=== PATIENT | female | born 1985 | race Caucasian/White ===

== ENCOUNTER 2019-12-10 09:05 | Emergency (ER) | payer MEDICAID ==
[~2019-12-10] VITALS: Ht 167.6 cm; Wt 67.0 kg
[2019-12-10] MEDS ORDERED: MORPHINE SULFATE 4 MG/ML CPJ (NOT FOR IM USE) IV STA (09:42)
[2019-12-10] MEDS ORDERED: ONDANSETRON HCL 4MG/2ML INJ IV STA (09:42)
[2019-12-10 09:53] LABS: BASOPHILS % 0.5 % (0.0-2.0); EOSINOPHILS % 1.2 % (0.0-5.0); HEMATOCRIT. 37.9 % (36.0-48.0); HEMOGLOBIN. 12.5 g/dL (12.0-16.0); LYMPHOCYTES % 13.3 % (20.0-50.0); MEAN CORPUSCULAR HEMOGLOBIN 24.5 pg (28.0-32.0); MEAN CORPUSCULAR VOLUME 74.6 fL (81.0-99.0); MEAN PLATELET VOLUME 7.2 fl (7.4-10.4); MONOCYTES % 3.5 % (2.0-8.0); NEUTROPHILS % 81.5 % (40.0-76.0); PLATELET 322 x1000/uL (130-400); RED BLOOD CELL COUNT 5.09 mill/uL (4.2-5.4); RED CELL DISTRIBUTION WIDTH 16.1 % (11.6-14.6)
[2019-12-10 10:02] LABS: CHLORIDE 113 mEq/L (98-107)
[2019-12-10 10:03] LABS: INR 0.9
[2019-12-10 10:14] LABS: CLARITY URINE CLOUDY (CLEAR); COLOR URINE YELLOW (YELLOW); KETONES URINE NEGATIVE (NEGATIVE); LEUKOCYTE ESTERASE URINE NEGATIVE (NEGATIVE); NITRITE URINE NEGATIVE (NEGATIVE); OCCULT BLOOD URINE NEGATIVE (NEGATIVE); PH URINE >=9.0 (4.5-8.0); PROTEIN URINE NEGATIVE (NEGATIVE); SPECIFIC GRAVITY URINE 1.021 (1.005-1.030)
[2019-12-10 11:20] VITALS: BP 161/70
== END 2019-12-10 11:37 | disposition home or self-care (01) ==
LOC: ER 09:22
DX: K80.20 Calculus of gallbladder without cholecystitis without obstruction (principal); R10.9 Unspecified abdominal pain
CPT/HCPCS: 36415; 76705; 80053; 81003; 81025; 83690; 85025; 85610; 93005; 96374; 96375; 99285; J2270; J2405

== ENCOUNTER 2020-05-20 05:06 | Inpatient (IN) | payer MEDICAID ==
[~2020-05-20] VITALS: Ht 317.5 cm; Wt 104.8 kg
[2020-05-20] MEDS ORDERED: MORPHINE SULFATE 4 MG/ML CPJ (NOT FOR IM USE) IV STA (06:16)
[2020-05-20] MEDS ORDERED: ONDANSETRON HCL 4MG/2ML INJ IV STA (06:16)
[2020-05-20 06:45] LABS: BASOPHILS % 0.3 % (0.0-2.0); EOSINOPHILS % 2.4 % (0.0-5.0); HEMATOCRIT. 36.1 % (36.0-48.0); HEMOGLOBIN. 11.9 g/dL (12.0-16.0); LYMPHOCYTES % 16.2 % (20.0-50.0); MEAN CORPUSCULAR HEMOGLOBIN 25.3 pg (28.0-32.0); MEAN CORPUSCULAR VOLUME 76.4 fL (81.0-99.0); MEAN PLATELET VOLUME 7.5 fl (7.4-10.4); MONOCYTES % 4.7 % (2.0-8.0); NEUTROPHILS % 76.4 % (40.0-76.0); PLATELET 256 x1000/uL (130-400); RED BLOOD CELL COUNT 4.72 mill/uL (4.2-5.4); RED CELL DISTRIBUTION WIDTH 15.6 % (11.6-14.6)
[2020-05-20 06:50] LABS: CHLORIDE 106 mEq/L (98-107)
[2020-05-20 07:04] LABS: PROTHROMBIN TIME 10.3 sec (9.6-11.0)
[2020-05-20 07:09] LABS: HCG SCREEN POSITIVE
[2020-05-20 07:16] LABS: CLARITY URINE TURBID (CLEAR); COLOR URINE YELLOW (YELLOW); KETONES URINE NEGATIVE (NEGATIVE); LEUKOCYTE ESTERASE URINE NEGATIVE (NEGATIVE); NITRITE URINE NEGATIVE (NEGATIVE); OCCULT BLOOD URINE NEGATIVE (NEGATIVE); PROTEIN URINE NEGATIVE (NEGATIVE); SPECIFIC GRAVITY URINE 1.017 (1.005-1.030)
[2020-05-20 07:17] LABS: UCG SCREEN POSITIVE
[2020-05-20] MEDS ORDERED: CEFTRIAXONE 1 G PREMIX 50 ML IV ONE (08:15)
[2020-05-20 12:00] VITALS: BP 143/67
[2020-05-20] MEDS ORDERED: MORPHINE SULFATE 2 MG/ML CPJ (NOT FOR IM USE) IV PRN (14:00)
[2020-05-20] MEDS ORDERED: ONDANSETRON HCL 4MG/2ML INJ IV PRN (14:00)
[2020-05-20] MEDS ORDERED: ACETAMINOPHEN 325MG TABLET PO PRN ×2 (14:00)
[2020-05-20] MEDS: DEXT 5%/0.45% NACL 1000ML 1,000 ML IV SCH (14:52)
[2020-05-20 16:00] VITALS: BP 143/49
[2020-05-20] MEDS: PIPERACILLIN/TAZOBACTAM 3.375 G in DEXT 5% WATER 100 ML IV SCH ×2 (17:49→23:52)
[2020-05-20 20:00] VITALS: BP 107/49
[2020-05-21] VITALS: BP 103/64
[2020-05-21] MEDS: DEXT 5%/0.45% NACL 1000ML 1,000 ML IV SCH ×2 (00:07→09:37)
[2020-05-21 04:00] VITALS: BP 137/62
[2020-05-21] MEDS: PIPERACILLIN/TAZOBACTAM 3.375 G in DEXT 5% WATER 100 ML IV SCH ×3 (05:41→18:33)
[2020-05-21 08:00] VITALS: BP 132/66
[2020-05-21 08:18] LABS: BASOPHILS % 0.6 % (0.0-2.0); EOSINOPHILS % 4.4 % (0.0-5.0); HEMATOCRIT. 36.2 % (36.0-48.0); HEMOGLOBIN. 11.5 g/dL (12.0-16.0); LYMPHOCYTES % 22.7 % (20.0-50.0); MEAN CORPUSCULAR HEMOGLOBIN 24.6 pg (28.0-32.0); MEAN CORPUSCULAR VOLUME 77.3 fL (81.0-99.0); MEAN PLATELET VOLUME 7.7 fl (7.4-10.4); MONOCYTES % 4.6 % (2.0-8.0); NEUTROPHILS % 67.7 % (40.0-76.0); PLATELET 263 x1000/uL (130-400); RED BLOOD CELL COUNT 4.68 mill/uL (4.2-5.4); RED CELL DISTRIBUTION WIDTH 15.5 % (11.6-14.6)
[2020-05-21 08:42] LABS: CHLORIDE 105 mEq/L (98-107)
[2020-05-21 08:52] LABS: PHOSPHORUS 3.3 mg/dL (2.5-4.9)
[2020-05-21] MEDS ORDERED: CEFTRIAXONE 1 G PREMIX 50 ML IV SCH (09:00)
[2020-05-21] MEDS ORDERED: PANTOPRAZOLE SODIUM 40 MG/VIAL IV SCH (09:00)
[2020-05-21 12:00] VITALS: BP 127/66
[2020-05-21 16:00] VITALS: BP 121/64
[2020-05-21 20:00] VITALS: BP 118/52
[2020-05-22] VITALS: BP 125/56
[2020-05-22] MEDS: PIPERACILLIN/TAZOBACTAM 3.375 G in DEXT 5% WATER 100 ML IV SCH ×2 (00:42→04:55)
[2020-05-22 04:00] VITALS: BP 110/55
[2020-05-22] MEDS: DEXT 5%/0.45% NACL 1000ML 1,000 ML IV SCH (05:00)
[2020-05-22 08:00] VITALS: BP 118/56
[2020-05-22 08:37] VITALS: BP 123/65
== END 2020-05-22 09:15 | disposition home or self-care (01) | DRG 566 ==
LOC: ER 05:06 → 8WST 10:50 → EDBEDREQ 10:52 → ENRESERV 11:43
PROVIDERS: ADMIT Internal Medicine; ATTEND Internal Medicine
DX: O26.611 Liver and biliary tract disorders in pregnancy, first trimester (principal); O25.11 Malnutrition in pregnancy, first trimester; O99.281 Endocrine, nutritional and metabolic diseases complicating pregnancy, first trimester; O99.011 Anemia complicating pregnancy, first trimester; O99.211 Obesity complicating pregnancy, first trimester; O99.411 Diseases of the circulatory system complicating pregnancy, first trimester; E87.1 Hypo-osmolality and hyponatremia; K80.00 Calculus of gallbladder with acute cholecystitis without obstruction; D64.9 Anemia, unspecified; E66.9 Obesity, unspecified; E83.51 Hypocalcemia; I49.3 Ventricular premature depolarization; O09.521 Supervision of elderly multigravida, first trimester; Z3A.01 Less than 8 weeks gestation of pregnancy
CPT/HCPCS: 36415; 76705; 76801; 80053; 81003; 81025; 82962; 83036; 83735; 84100; 84702; 84703; 85025; 93005; 93970; 99285; C9113; J0696; J2405; J2543; J7060